=== PATIENT | female | born 1995 | race Hispanic/Latino ===

== ENCOUNTER → 2016-09-21 | Outpatient (CLI) | payer OTHER ==
[2016-09-21 13:32] LABS: BASO % 0.4 % (0.0-1.0); EOS # 0.2 K/mm3 (0.0-0.50); EOS % 2.7 % (0.0-3.0); LARGE UNSTAINED CELL # 0.2 K/mm3 (0.0-0.4); LARGE UNSTAINED CELL % 2.5 % (0.0-4.0); LYMPH % 32.7 % (24.0-44.0); MEAN CORPUSCULAR HGB CONC 32.9 g/dl (32.0-36.5); MEAN CORPUSCULAR VOLUME 85.1 fl (80.0-96.0); MONO # 0.4 K/mm3 (0.0-0.8); MONO % 5.8 % (0.0-5.0); NEUTROPHILS # 3.4 K/mm3 (1.8-7.7); PLATELET COUNT, AUTOMATED 375 k/mm3 (150-450); RED CELL DISTRIBUTION WIDTH 12.8 % (11.5-14.5); WHITE BLOOD COUNT 6.1 K/mm3 (4.0-10.0)
[2016-09-21 13:48] LABS: ALBUMIN 4.3 GM/DL (3.2-5.2); ALBUMIN/GLOBULIN RATIO 1.26 (1.00-1.93); ALKALINE PHOSPHATASE 73 U/L (45-117); ALT/SGPT 20 U/L (12-78); ANION GAP 11 MEQ/L (8-16); AST/SGOT 9 U/L (15-37); BILIRUBIN,TOTAL 0.5 MG/DL (0.2-1.0); BLOOD UREA NITROGEN 15 MG/DL (7-18); CALCIUM LEVEL 9.3 MG/DL (8.5-10.1); CARBON DIOXIDE LEVEL 27 MEQ/L (21-32); CHLORIDE LEVEL 106 MEQ/L (98-107); CHOLESTEROL LEVEL 229 MG/DL (<200); CREATININE FOR GFR 0.74 MG/DL (0.55-1.02); GLOMERULAR FILTRATION RATE > 60.0 (>60); GLUCOSE, FASTING 99 MG/DL (70-105); POTASSIUM SERUM 4.2 MEQ/L (3.5-5.1); SODIUM LEVEL 144 MEQ/L (136-145); TOTAL PROTEIN 7.7 GM/DL (6.4-8.2); TRIGLYCERIDES LEVEL 83 MG/DL (<150)
== END ==
LOC: M WUC 10:38
PROVIDERS: ATTEND Family Medicine Addiction Medicine
DX: F41.8 Other specified anxiety disorders (principal)

== ENCOUNTER 2016-12-01 06:17 | Emergency (ER) | payer OTHER ==
[~2016-12-01] VITALS: Ht 162.6 cm; Wt 59.0 kg
[2016-12-01] MEDS ORDERED: GI COCKTAIL 50ML BTL(HYOSCYAMINE/MAALOX/LIDOCAINE VISCOUS)(1:3:1) PO ONE (08:30)
[2016-12-01 08:55] VITALS: BP 111/67
[2016-12-01] MEDS ORDERED: PRIL20CA9 PO (08:56)
== END 2016-12-01 09:04 | disposition home or self-care (01) ==
LOC: M ED 07:45
DX: K21.9 Gastro-esophageal reflux disease without esophagitis (principal)

== ENCOUNTER → 2016-12-02 | Outpatient (REF) | payer OTHER ==
[~2016-12-02] MED LIST: PRIL20CA9 PO
== END ==
LOC: M LAB REF 16:40
PROVIDERS: ATTEND Family Medicine Addiction Medicine
DX: J02.9 Acute pharyngitis, unspecified (principal)

== ENCOUNTER → 2017-02-09 | Outpatient (CLI) | payer OTHER ==
[~2017-02-09] MED LIST changes: +AUGM500T34 PO
== END ==
LOC: M WUC 10:11
PROVIDERS: ATTEND Family Medicine Addiction Medicine
DX: E55.9 Vitamin D deficiency, unspecified (principal)

== ENCOUNTER 2017-02-12 22:09 | Emergency (ER) | payer OTHER ==
[~2017-02-12] VITALS: Ht 162.6 cm; Wt 61.2 kg
[~2017-02-12 22:09] MED LIST changes: -AUGM500T34 PO
[2017-02-13] MEDS ORDERED: AUGM500T34 PO (00:36)
[2017-02-13 00:40] VITALS: BP 115/71
[2017-02-13] MEDS ORDERED: AUGMENTIN 875 MG TAB PO ONE (00:45)
--- NOTE | 2017-02-13 01:02 | REP ---
Clinical: Cough . Comparison: None . Technique: PA and lateral. Findings: The mediastinum and cardiac silhouette are normal. The lung jordan are clear and without acute consolidation, effusion, or pneumothorax. The skeletal structures are intact and normal. Impression: 1. No acute cardiopulmonary process. Signed by Matthew Roach MD 02/13/2017 12:53 A
== END 2017-02-13 01:00 | disposition home or self-care (01) ==
LOC: M ED 22:58
DX: J02.9 Acute pharyngitis, unspecified (principal)

== ENCOUNTER 2017-03-08 14:07 | Emergency (ER) | payer OTHER ==
[~2017-03-08] VITALS: Ht 162.6 cm; Wt 65.8 kg
[~2017-03-08 14:07] MED LIST changes: +AUGM500T34 PO
[2017-03-08 16:25] VITALS: BP 104/72
== END 2017-03-08 16:27 | disposition home or self-care (01) ==
LOC: M ED 14:07
DX: R20.2 Paresthesia of skin (principal)

== ENCOUNTER 2017-09-17 02:53 | Emergency (ER) | payer OTHER ==
[2017-09-17] MEDS ORDERED: PHENAZOPYRIDINE 100 MG TAB As Ordered (04:03)
[2017-09-17] MEDS ORDERED: MORPHINE 4 MG/ML 1ML SYRINGE As Ordered (04:03)
[2017-09-17] MEDS ORDERED: CEFTRIAXONE As Ordered (04:04)
[2017-09-17] MEDS ORDERED: cefTRIAXone SOD 1 GM VIAL (J0696) As Ordered (04:04)
[2017-09-17] MEDS ORDERED: LIDOCAINE 1% MDV 20ML VIAL As Ordered (04:05)
[2017-09-17 04:17] LABS: APPEARANCE, URINE CLOUDY (CLEAR); BACTERIA, URINE AUTO NEGATIVE (NEGATIVE); BILIRUBIN, URINE AUTO NEGATIVE (NEGATIVE); BLOOD, URINE BLOOD 3+ (NEGATIVE); COLOR, URINE YELLOW (YELLOW); GLUCOSE, URINE (UA) AUTO NEGATIVE (NEGATIVE); KETONE, URINE AUTO NEGATIVE (NEGATIVE); LEUKOCYTE ESTERASE, URINE AUTO 3+ (NEGATIVE); NITRITE, URINE AUTO NEGATIVE (NEGATIVE); PROTEIN, URINE AUTO 2+ mg/dL (NEGATIVE); RBC, URINE AUTO TNTC /HPF (0-3); SPECIFIC GRAVITY URINE AUTO 1.018 (1.002-1.035); SQUAMOUS EPITHELIAL CELL UR AU 2 /HPF (0-6); UROBILINOGEN, URINE AUTO 0.2 mg/dL (0.0-2.0); WBC, URINE AUTO TNTC /HPF (0-3)
== END 2017-09-17 04:43 | disposition home or self-care (01) ==
LOC: M ED 02:53
DX: N39.0 Urinary tract infection, site not specified (principal)
CPT/HCPCS: J0696

== ENCOUNTER → 2017-09-28 | Outpatient (CLI) | payer OTHER ==
[2017-09-28 18:59] LABS: PROGESTERONE 0.6 NG/ML
[2017-09-28 19:00] LABS: LUTEINIZING HORMONE 16.2 mIU/mL; PROLACTIN 4.9 NG/ML
[2017-09-28 19:11] LABS: FREE T4 0.84 NG/DL (0.76-1.46)
== END ==
LOC: M SMT 14:23
DX: N93.8 Other specified abnormal uterine and vaginal bleeding (principal)
CPT/HCPCS: 83001

== ENCOUNTER → 2017-09-28 | Outpatient (REF) | payer OTHER | LOC: M LAB REF 18:11 | DX: Z12.4 Encounter for screening for malignant neoplasm of cervix (principal) ==

== ENCOUNTER 2018-03-18 13:22 | Emergency (ER) | payer OTHER ==
[2018-03-18] MEDS: GASTROGRAFIN SOLUTION 30ML PO ×3 (14:10→16:40)
[2018-03-18] MEDS: NS 1,000 ML IV (15:28)
[2018-03-18 15:35] LABS: BASO % 0.3 % (0.0-1.0); EOS # 0.1 10^3/uL (0.0-0.50); HEMOGLOBIN 13.4 g/dl (12.0-15.5); IMMATURE GRANULOCYTE % 0.4 % (0-3.0); LYMPH # 3.1 10^3/uL (1.5-6.5); LYMPH % 27.6 % (24.0-44.0); MEAN CORPUSCULAR HEMOGLOBIN 27.4 pg (27.0-33.0); MEAN CORPUSCULAR HGB CONC 31.9 g/dl (32.0-36.5); MEAN CORPUSCULAR VOLUME 85.9 fl (80.0-96.0); MONO # 0.9 10^3/uL (0.0-0.8); MONO % 8.3 % (0.0-5.0); NEUTROPHILS % 62.4 % (36.0-66.0); PLATELET COUNT, AUTOMATED 434 10^3/uL (150-450); RED BLOOD COUNT 4.89 10^6/uL (4.00-5.40); RED CELL DISTRIBUTION WIDTH 14.1 % (11.5-14.5); WHITE BLOOD COUNT 11.2 10^3/uL (4.0-10.0)
[2018-03-18 15:57] LABS: ALBUMIN 4.2 GM/DL (3.2-5.2); ALBUMIN/GLOBULIN RATIO 1.05 (1.00-1.93); ALKALINE PHOSPHATASE 81 U/L (45-117); ALT/SGPT 37 U/L (12-78); ANION GAP 7 MEQ/L (8-16); AST/SGOT 27 U/L (7-37); BILIRUBIN,DIRECT 0.1 MG/DL (0.0-0.2); BILIRUBIN,TOTAL 0.4 MG/DL (0.2-1.0); BLOOD UREA NITROGEN 11 MG/DL (7-18); CARBON DIOXIDE LEVEL 25 MEQ/L (21-32); CHLORIDE LEVEL 108 MEQ/L (98-107); CREATININE FOR GFR 0.77 MG/DL (0.55-1.30); GLOMERULAR FILTRATION RATE > 60.0 (>60); GLUCOSE, FASTING 91 MG/DL (70-100); LIPASE 198 U/L (73-393); POTASSIUM SERUM 3.9 MEQ/L (3.5-5.1); SODIUM LEVEL 140 MEQ/L (136-145); TOTAL PROTEIN 8.2 GM/DL (6.4-8.2)
[2018-03-18] MEDS ORDERED: ISOVUE-370 76% 100ML VIAL (Q9967) As Ordered (17:35)
[2018-03-18] MEDS: metroNIDAZOLE (FLAGYL) 500 MG TAB PO (19:27)
== END 2018-03-18 19:35 | disposition home or self-care (01) ==
LOC: M ED 13:22
DX: K52.9 Noninfective gastroenteritis and colitis, unspecified (principal)
CPT/HCPCS: Q9963

== ENCOUNTER → 2018-03-29 | Outpatient (CLI) | payer OTHER ==
[2018-03-29 19:13] LABS: APPEARANCE, URINE CLOUDY (CLEAR); BACTERIA, URINE AUTO 1+ (NEGATIVE); BILIRUBIN, URINE AUTO NEGATIVE (NEGATIVE); BLOOD, URINE BLOOD 1+ (NEGATIVE); COLOR, URINE YELLOW (YELLOW); GLUCOSE, URINE (UA) AUTO NEGATIVE (NEGATIVE); KETONE, URINE AUTO NEGATIVE (NEGATIVE); LEUKOCYTE ESTERASE, URINE AUTO 3+ (NEGATIVE); MUCUS, URINE LARGE (NEGATIVE); NITRITE, URINE AUTO NEGATIVE (NEGATIVE); PROTEIN, URINE AUTO 1+ mg/dL (NEGATIVE); RBC, URINE AUTO 17 /HPF (0-3); SPECIFIC GRAVITY URINE AUTO 1.028 (1.002-1.035); SQUAMOUS EPITHELIAL CELL UR AU 19 /HPF (0-6); WBC, URINE AUTO 13 /HPF (0-3)
== END ==
LOC: M LAB 18:20
DX: R10.10 Upper abdominal pain, unspecified (principal)
CPT/HCPCS: 36415

== ENCOUNTER → 2018-03-30 | Outpatient (REF) | payer OTHER | LOC: M LAB REF 12:45 | DX: R10.10 Upper abdominal pain, unspecified (principal) ==

== ENCOUNTER 2018-09-17 16:07 | Emergency (ER) | payer OTHER, SELFPAY ==
[~2018-09-17] VITALS: Ht 162.6 cm; Wt 73.6 kg
[~2018-09-17 16:07] MED LIST changes: +BACT800T5 PO; +FLAG500T PO; +MONT10TA2
[2018-09-17] MEDS ORDERED: CIPR-249 PO (19:41)
[2018-09-17] MEDS ORDERED: DIFL150T PO (19:41)
[2018-09-17] MEDS ORDERED: PYRI1TAB5 PO (19:41)
[2018-09-17] MEDS ORDERED: CIPROFLOXACIN 500 MG TAB PO ONE (19:45)
[2018-09-17] MEDS ORDERED: PHENAZOPYRIDINE 100 MG TAB PO ONE (19:45)
[2018-09-17 19:58] VITALS: BP 116/77
[2018-09-17 20:25] LABS: CHLAMYDIA DNA AMPLIFICATION NEGATIVE (NEGATIVE); GC DNA AMPLIFICATION NEGATIVE (NEGATIVE)
== END 2018-09-17 20:06 | disposition home or self-care (01) ==
LOC: M ED 16:07
DX: N30.00 Acute cystitis without hematuria (principal); B37.3 Candidiasis of vulva and vagina

== ENCOUNTER → 2019-03-26 | Outpatient (REF) | payer OTHER ==
[~2019-03-26] MED LIST changes: +CIPR-249 PO; +DIFL150T PO; +PYRI1TAB5 PO
== END ==
LOC: M LAB REF 17:15
PROVIDERS: ATTEND Specialist
DX: Z12.4 Encounter for screening for malignant neoplasm of cervix (principal); B37.3 Candidiasis of vulva and vagina

== ENCOUNTER → 2019-06-06 | Outpatient (REF) | payer OTHER ==
[2019-06-06 19:54] LABS: AMORPHOUS SEDIMENT SMALL (NEGATIVE); APPEARANCE, URINE TURBID (CLEAR); BACTERIA, URINE AUTO NEGATIVE (NEGATIVE); BILIRUBIN, URINE AUTO NEGATIVE (NEGATIVE); BLOOD, URINE BLOOD 1+ (NEGATIVE); COLOR, URINE YELLOW (YELLOW); GLUCOSE, URINE (UA) AUTO NEGATIVE (NEGATIVE); KETONE, URINE AUTO NEGATIVE (NEGATIVE); LEUKOCYTE ESTERASE, URINE AUTO 1+ (NEGATIVE); MUCUS, URINE LARGE (NEGATIVE); NITRITE, URINE AUTO NEGATIVE (NEGATIVE); PROTEIN, URINE AUTO NEGATIVE (NEGATIVE); RBC, URINE AUTO 0 /HPF (0-3); SPECIFIC GRAVITY URINE AUTO 1.027 (1.002-1.035); SQUAMOUS EPITHELIAL CELL UR AU 1 /HPF (0-6); UROBILINOGEN, URINE AUTO 0.2 mg/dL (0.0-2.0); WBC, URINE AUTO 8 /HPF (0-3)
== END ==
LOC: M LAB REF 18:53
PROVIDERS: ATTEND Nurse Practitioner Family
DX: R30.0 Dysuria (principal)

== ENCOUNTER 2019-08-08 03:46 | Emergency (ER) | payer OTHER ==
[~2019-08-08] VITALS: Ht 160 cm; Wt 72.7 kg
[2019-08-08 03:46] VITALS: BP 126/87
[2019-08-08] MEDS ORDERED: CVS400CA PO (03:51)
[2019-08-08] MEDS ORDERED: D400400C PO (03:51)
[2019-08-08] MEDS ORDERED: IBUPROFEN 600 MG TAB PO ONE (04:15)
[2019-08-08] MEDS ORDERED: AUGM875T28 PO (04:23)
[2019-08-08] MEDS ORDERED: OFLOSO OTIC (04:25)
[2019-08-08] MEDS ORDERED: AUGMENTIN 875 MG TAB PO ONE (04:30)
== END 2019-08-08 05:11 | disposition home or self-care (01) ==
LOC: M ED 03:46
DX: H66.92 Otitis media, unspecified, left ear (principal); H60.92 Unspecified otitis externa, left ear

== ENCOUNTER → 2020-04-03 | Emergency (ER) | payer OTHER ==
[~2020-04-03] MED LIST changes: +AUGM875T28 PO; +CVS400CA PO; +D400400C PO; -MONT10TA2; +MONT10TA4; +OFLOSO OTIC
[2020-05-10 16:09] LABS: APPEARANCE, URINE CLOUDY (CLEAR); BACTERIA, URINE AUTO 1+ (NEGATIVE); BILIRUBIN, URINE AUTO NEGATIVE (NEGATIVE); BLOOD, URINE BLOOD NEGATIVE (NEGATIVE); COLOR, URINE YELLOW (YELLOW); GLUCOSE, URINE (UA) AUTO NEGATIVE (NEGATIVE); KETONE, URINE AUTO NEGATIVE (NEGATIVE); LEUKOCYTE ESTERASE, URINE AUTO 3+ (NEGATIVE); MUCUS, URINE SMALL (NEGATIVE); NITRITE, URINE AUTO NEGATIVE (NEGATIVE); PROTEIN, URINE AUTO NEGATIVE (NEGATIVE); RBC, URINE AUTO 8 /HPF (0-3); SPECIFIC GRAVITY URINE AUTO 1.023 (1.002-1.035); SQUAMOUS EPITHELIAL CELL UR AU 20 /HPF (0-6); UROBILINOGEN, URINE AUTO 0.2 mg/dL (0.0-2.0); WBC, URINE AUTO 4 /HPF (0-3)
[2020-05-10 17:08] LABS: HEMATOCRIT 43.6 % (36.0-47.0); HEMOGLOBIN 13.8 g/dl (12.0-15.5); MEAN CORPUSCULAR HEMOGLOBIN 27.1 pg (27.0-33.0); MEAN CORPUSCULAR HGB CONC 31.7 g/dl (32.0-36.5); MEAN CORPUSCULAR VOLUME 85.7 fl (80.0-96.0); PLATELET COUNT, AUTOMATED 372 10^3/uL (150-450); RED BLOOD COUNT 5.09 10^6/uL (4.00-5.40)
[2020-06-13 11:37] LABS: ACETAMINOPHEN LEVEL < 2.0 UG/ML (10.0-30.0); ALBUMIN 4.3 GM/DL (3.2-5.2); ALT/SGPT 27 U/L (12-78); AMPHETAMINES LEVEL URINE NEGATIVE (NEGATIVE); BARBITURATES URINE NEGATIVE (NEGATIVE); BENZODIAZEPINES URINE NEGATIVE (NEGATIVE); BILIRUBIN,DIRECT < 0.1 MG/DL (0.0-0.2); BILIRUBIN,TOTAL 0.3 MG/DL (0.2-1.0); BLOOD UREA NITROGEN 10 MG/DL (7-18); CALCIUM LEVEL 9.2 MG/DL (8.5-10.1); CANNABINOIDS URINE NEGATIVE (NEGATIVE); CARBON DIOXIDE LEVEL 25 MEQ/L (21-32); CHLORIDE LEVEL 108 MEQ/L (98-107); COCAINE METABOLITE URINE NEGATIVE (NEGATIVE); CREATININE FOR GFR 0.84 MG/DL (0.55-1.30); ETHYL ALCOHOL (ETHANOL) < 0.003 % (0.000-0.010); GLOMERULAR FILTRATION RATE > 60.0 (>60); GLUCOSE, FASTING 96 MG/DL (70-100); METHADONE URINE NEGATIVE (NEGATIVE); OPIATES URINE NEGATIVE (NEGATIVE); PHENCYCLIDINE URINE NEGATIVE (NEGATIVE); POTASSIUM SERUM 4.1 MEQ/L (3.5-5.1); SALICYLATE LEVEL < 1.7 MG/DL (5.0-30.0); SODIUM LEVEL 140 MEQ/L (136-145); TOTAL PROTEIN 8.3 GM/DL (6.4-8.2)
[2020-06-13 11:38] LABS: HCG, SERUM QUALITATIVE NEGATIVE (NEGATIVE)
== END | disposition home or self-care (01) ==
LOC: M ED 17:00
DX: F32.9 Major depressive disorder, single episode, unspecified (principal); F41.0 Panic disorder [episodic paroxysmal anxiety]; F43.12 Post-traumatic stress disorder, chronic; Z91.5 Personal history of self-harm
CPT/HCPCS: 80048; 80076; 80307; 81001; 84443; 84703; 85027; 87086; 99284; G0480

== ENCOUNTER → 2020-06-24 | Outpatient (REF) | payer OTHER | LOC: M WUC 15:58 | PROVIDERS: ATTEND Nurse Practitioner Family | DX: J02.9 Acute pharyngitis, unspecified (principal) ==

== ENCOUNTER 2020-09-06 19:34 | Emergency (ER) | payer OTHER ==
[~2020-09-06] VITALS: Ht 162.6 cm; Wt 76.7 kg
[~2020-09-06 19:34] MED LIST changes: -MONT10TA4; +MONT5TAB2
[2020-09-06] MEDS ORDERED: ANUSOL HC 25MG SUPP PR STA (20:06)
[2020-09-06] MEDS ORDERED: NS 1,000 ML IV ONE (20:15)
[2020-09-06 20:34] LABS: BASO # 0.1 10^3/uL (0.0-0.2); BASO % 0.7 % (0.0-1.0); EOS # 0.5 10^3/uL (0.0-0.5); EOS % 4.9 % (0.0-3.0); HEMATOCRIT 42.1 % (36.0-47.0); HEMOGLOBIN 12.8 g/dl (12.0-15.5); LYMPH # 2.8 10^3/uL (1.5-5.0); LYMPH % 29.1 % (24.0-44.0); MEAN CORPUSCULAR HEMOGLOBIN 26.4 pg (27.0-33.0); MEAN CORPUSCULAR HGB CONC 30.4 g/dl (32.0-36.5); MEAN CORPUSCULAR VOLUME 86.8 fl (80.0-96.0); MONO # 0.7 10^3/uL (0.0-0.8); MONO % 7.2 % (0.0-5.0); NEUTROPHILS # 5.5 10^3/uL (1.5-8.5); NEUTROPHILS % 57.7 % (36.0-66.0); PLATELET COUNT, AUTOMATED 382 10^3/uL (150-450); RED BLOOD COUNT 4.85 10^6/uL (4.00-5.40); WHITE BLOOD COUNT 9.6 10^3/uL (4.0-10.0)
[2020-09-06 20:47] LABS: INR 0.93; PROTHROMBIN TIME 12.7 SECONDS (12.5-14.3)
[2020-09-06 20:48] LABS: PARTIAL THROMBOPLASTIN TIME 34.4 SECONDS (24.2-38.5)
[2020-09-06 21:08] LABS: ALBUMIN 3.9 GM/DL (3.2-5.2); ALT/SGPT 26 U/L (12-78); BILIRUBIN,DIRECT < 0.1 MG/DL (0.0-0.2); BILIRUBIN,TOTAL 0.2 MG/DL (0.2-1.0); BLOOD UREA NITROGEN 14 MG/DL (7-18); CALCIUM LEVEL 9.2 MG/DL (8.5-10.1); CARBON DIOXIDE LEVEL 29 MEQ/L (21-32); CHLORIDE LEVEL 108 MEQ/L (98-107); CREATININE FOR GFR 0.89 MG/DL (0.55-1.30); GLOMERULAR FILTRATION RATE > 60.0 (>60); GLUCOSE, FASTING 85 MG/DL (70-100); LIPASE 211 U/L (73-393); POTASSIUM SERUM 3.9 MEQ/L (3.5-5.1); SODIUM LEVEL 141 MEQ/L (136-145); TOTAL PROTEIN 7.6 GM/DL (6.4-8.2)
[2020-09-06] MEDS ORDERED: ISOVUE-370 76% 100ML VIAL As Ordered ONE (21:17)
[2020-09-06] MEDS ORDERED: METAL LOCK LOOP XX ONE (21:59)
--- NOTE | 2020-09-06 22:27 | REPVR ---
PROCEDURE INFORMATION: Exam: CT Abdomen And Pelvis With Contrast Exam date and time: 09/06/2020 9:27 PM Age: 24 years old Clinical indication: Abdominal pain; Localized; Right; Additional info: Rectal bleeding, right sided abd pain TECHNIQUE: Imaging protocol: Computed tomography of the abdomen and pelvis with intravenous contrast. Radiation optimization: All CT scans at this facility use at least one of these dose optimization techniques: automated exposure control; mA and/or kV adjustment per patient size (includes targeted exams where dose is matched to clinical indication); or iterative reconstruction. Contrast material: ISOVUE 370; Contrast volume: 100 ml; Contrast route: INTRAVENOUS (IV); COMPARISON: CT ABD/PEL W/IV ORAL CONTRAS 2018-03-18 17:44 FINDINGS: Limitations: Motion artifact does moderately limit the sensitivity of this examination. Liver: Normal. No mass. Gallbladder and bile ducts: Normal. No calcified stones. No ductal dilation. Pancreas: Normal. No ductal dilation. Spleen: Normal. No splenomegaly. Adrenal glands: Normal. No mass. Kidneys and ureters: Normal. No hydronephrosis. Stomach and bowel: Unremarkable. No obstruction. No mucosal thickening. Appendix: No evidence of appendicitis. Intraperitoneal space: Unremarkable. No free air. No significant fluid collection. Vasculature: Unremarkable. No abdominal aortic aneurysm. Lymph nodes: Unremarkable. No enlarged lymph nodes. Urinary bladder: Unremarkable as visualized. Reproductive: Unremarkable as visualized. Bones/joints: Unremarkable. No acute fracture. Soft tissues: Unremarkable. IMPRESSION: No acute findings. Electronically signed by: Felipe West On 09/06/2020 22:27:09 PM
[2020-09-06] MEDS ORDERED: ANUS25SU PR (22:59)
[2020-09-06 23:06] VITALS: BP 112/76
== END 2020-09-06 23:12 | disposition home or self-care (01) ==
LOC: M ED 19:34
DX: K64.8 Other hemorrhoids (principal); K62.5 Hemorrhage of anus and rectum
CPT/HCPCS: 74177; 80047; 80048; 80076; 83690; 84702; 85025; 85610; 85730; 96360; 96361; 99284; Q9967

== ENCOUNTER 2021-01-07 01:25 | Emergency (ER) | payer OTHER ==
[~2021-01-07] VITALS: Ht 162.6 cm; Wt 77.8 kg
[2021-01-07 01:25] VITALS: BP 133/79
[~2021-01-07 01:25] MED LIST changes: +ANUS25SU PR; +MONT10TA10; -MONT5TAB2
--- NOTE | 2021-01-07 17:06 | ECGEPIP ---
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
== END 2021-01-07 03:23 | disposition left against medical advice (07) ==
LOC: M ED 01:25
DX: Z53.21 Procedure and treatment not carried out due to patient leaving prior to being seen by health care provider (principal)

== ENCOUNTER → 2021-02-20 | Outpatient (REF) | payer OTHER | LOC: M WUC 19:30 | PROVIDERS: ATTEND Nurse Practitioner Family | DX: N39.0 Urinary tract infection, site not specified (principal) ==

== ENCOUNTER → 2021-03-23 | Outpatient (REF) | payer OTHER | LOC: M LAB REF 21:47 | PROVIDERS: ATTEND Nurse Practitioner Family | DX: N39.0 Urinary tract infection, site not specified (principal) ==